=== PATIENT | male | born 1980 | race Caucasian/White ===

== ENCOUNTER 2025-07-30 12:36 | Emergency (ER) | payer MEDICAID ==
[~2025-07-30] VITALS: Ht 175.3 cm; Wt 114.0 kg
[2025-07-30 12:53] VITALS: O2SAT 99
[2025-07-30] MEDS ORDERED: IBUP-1455 MT (16:41)
[2025-07-30 17:00] VITALS: BP 169/99; PULSE 95; RESP 16; TEMP 36.9; O2SAT 99
== END 2025-07-30 17:01 | disposition home or self-care (01) ==
LOC: ER 12:36
DX: K40.20 Bilateral inguinal hernia, without obstruction or gangrene, not specified as recurrent (principal); R10.22 Pelvic and perineal pain left side; I10 Essential (primary) hypertension; Q63.2 Ectopic kidney
CPT/HCPCS: 74176; 99284